=== PATIENT | male | born 2000 | race African-American/Black ===

== ENCOUNTER 2025-04-17 11:50 | Emergency (ER) | payer MEDICAID, OTHER ==
[~2025-04-17] VITALS: Ht 175.3 cm; Wt 67.6 kg
[2025-04-17 12:27] VITALS: BP 140/90; TEMP 98.8; O2SAT 98
== END 2025-04-17 12:27 | disposition home or self-care (01) ==
LOC: ER 11:55
DX: F41.1 Generalized anxiety disorder (principal)

== ENCOUNTER 2025-04-17 13:12 | Emergency (ER) | payer MEDICAID, OTHER ==
[~2025-04-17] VITALS: Ht 175.3 cm; Wt 63.6 kg
[2025-04-17 14:13] LABS: PLATELET COUNT (AUTO) 195 K/uL (150-450); RED BLOOD CELL COUNT(AUTO) 5.01 MIL/uL (4.5-6.0); RED CELL DISTRIBUTION WIDTH 13.0 % (11.5-15.0); WHITE BLOOD COUNT (AUTO) 6.3 K/uL (4.3-11.0)
[2025-04-17 14:36] LABS: CALCIUM, SERUM 9.4 mg/dL (8.5-10.1); CREATININE 1.5 mg/dL (0.6-1.3); SODIUM SERUM 143 mmol/L (136-145); TOTAL PROTEIN, SERUM 7.6 g/dL (6.4-8.2); UREA NITROGEN, BLOOD 20 mg/dL (7-18)
[2025-04-17 14:41] LABS: ALCOHOL, BLOOD < 3 mg/dL (0-10)
[2025-04-17 14:49] LABS: ASPARTATE AMINOTRANSFERASE 57 U/L (15-37)
[2025-04-17 18:07] LABS: APPEARANCE,URINE CLEAR (CLEAR); BLOOD, URINE NEGATIVE Ery/uL (NEGATIVE); LEUKOCYTE ESTERASE ,URINE NEGATIVE (NEGATIVE); NITRITE, URINE NEGATIVE (NEGATIVE); UGLUCOSE NEGATIVE (NEGATIVE)
[2025-04-17 18:36] LABS: AMPHETAMINE, URINE NEGATIVE (NEGATIVE); BARBITURATE, URINE NEGATIVE (NEGATIVE); BENZODIAZEPINE, URINE NEGATIVE (NEGATIVE); COCCAINE, URINE NEGATIVE (NEGATIVE); OPIATE, URINE NEGATIVE (NEGATIVE)
[2025-04-17 18:37] LABS: CANNABINOID, URINE POSITIVE (NEGATIVE)
[2025-04-17 18:39] LABS: ADD URINE CULTURE YES
[2025-04-17 18:40] LABS: SQUAMOUS EPITHELIAL CELL,UR Moderate /HPF (None Seen)
[2025-04-18 06:01] VITALS: BP 127/83; TEMP 98; O2SAT 99
== END 2025-04-18 06:02 ==
LOC: ER 13:14
DX: R45.6 Violent behavior (principal); Z79.899 Other long term (current) drug therapy; Z20.822 Contact with and (suspected) exposure to COVID-19
CPT/HCPCS: 36415; 80048-TC; 80076-TC; 81001; 85025-TC; 87086-TC; G0480